=== PATIENT | male | born 1935 | race American Indian/Alaskan Native ===

== ENCOUNTER 2021-12-25 06:43 | Emergency (ER) | payer MEDICARE ==
[2021-12-25] MEDS ORDERED: LET TOPICAL (LIDOCAINE/EPINEPHRINE/TETRACAINE) 3 ML TP ONE (07:24)
[2021-12-25] MEDS ORDERED: TETANUS,DIPH,PERTUSS(ACELL) VACCINE 0.5 ML SYRINGE IM ONE (07:24)
--- NOTE | 2021-12-25 07:26 | Emergency Department Report ---
<BJORN HOLLINS - Last Filed: 12/25/21 10:12> ED Fall HPI - General Chief Complaint: Fall Stated Complaint: FALL/HEAD INJURY Time Seen by Provider: 12/25/21 07:19 - Related Data Allergies Allergy/AdvReac Type Severity Reaction Status Date / Time No Known Allergies Allergy Unverified 09/14/15 09:44 - Laceration /Wound Repair Head Anesthesia: Lidocaine w/ Epi (3 mL topical LET) Number of Sutures: 9 ([place]) ED Disposition Clinical Impression: Fall Qualifiers: Encounter type: initial encounter Qualified Code(s): W19.XXXA - Unspecified fall, initial encounter Occipital scalp laceration Qualifiers: Encounter type: initial encounter Qualified Code(s): S01.01XA - Laceration without foreign body of scalp, initial encounter Posttraumatic headache Qualifiers: Headache chronicity pattern: acute headache Intractability: not intractable Qualified Code(s): G44.319 - Acute post-traumatic headache, not intractable Acute cervical myofascial strain Qualifiers: Encounter type: initial encounter Qualified Code(s): S16.1XXA - Strain of muscle, fascia and tendon at neck level, initial encounter Disposition: HOME / SELF CARE / HOMELESS Condition: Stable Instructions: How to Use Cold Therapy, [id number], Laceration Care, Adult, Cervical Sprain, Post-Concussion Syndrome Additional Instructions: Keep the wound clean. Apply ice for pain. Have the nohelia removed in 10 days. Follow-up with your family doctor for recheck and further management. Consider blocking off the stairs as a safety mechanism. Referrals: PRIMARY CARE, [Referring] - 3-5 Days KALYAN STOKES MD [Staff Physician] - 3-5 Days <REBECCA COBIAN - Last Filed: 12/25/21 11:47> ED Fall HPI - General Source: patient Mode of arrival: Ambulatory - History of Present Illness Initial Comments: Patient presents with injuries from a fall. This was unwitnessed. Patient was getting up to go to the restroom. He apparently fell down a flight of stairs. Family state that this was 13 in number. Again, this was not witnessed. We do not know if he tumbled or bounced or slid. Patient states that he just fell down the stairs. He denies LOC. Family states that he was knocked unconscious. He did sustain a laceration to the occiput. He is complaining of a frontal headache. He states that his neck was hurting but it is not now. His chest was hurting but it is not now. He states his head still hurts. Family state that he does have dementia. They have not been able to rely on his story. This fall was unwitnessed. They are uncertain about his last tetanus booster. They believe it has been longer than 10 years. He is not anticoagulated. ED Review of Systems ROS: Stated complaint: FALL/HEAD INJURY Other details as noted in HPI Comment: All other systems reviewed and negative (He does have dementia so this is somewhat circumspect) Constitutional: denies: fever Eyes: denies: vision change ENT: denies: throat pain Respiratory: denies: cough Cardiovascular: denies: chest pain Endocrine: denies: unexplained weight loss Gastrointestinal: denies: abdominal pain, nausea, vomiting Genitourinary: denies: dysuria Musculoskeletal: as per HPI Skin: denies: rash Neurological: as per HPI Hematological/Lymphatic: denies: easy bruising ED Past Medical Hx - Past Medical History Previous Medical History?: Yes Hx Dementia: Yes Additional medical history: prostate ca - Surgical History Past Surgical History?: Yes Additional Surgical History: prostate - Social History Smoking Status: Never Smoker Substance Use Type: None ED Physical Exam - General Limitations: Altered Mental Status (Chronic dementia), Other (Pulse ox noted and normal) General appearance: alert, in no apparent distress, other (Frail and debilitated) - Head Head exam: Present: normocephalic, other (5 cm horizontal occipital laceration) - Eye Eye exam: Present: normal appearance, PERRL, EOMI. Absent: scleral icterus - ENT ENT exam: Present: normal orophraynx, normal external ear exam - Neck Neck exam: Present: normal inspection, other (There is no midline tenderness or step-off noted.). Absent: tenderness, meningismus - Respiratory Respiratory exam: Present: normal lung sounds bilaterally. Absent: respiratory distress - Cardiovascular Cardiovascular Exam: Present: regular rate, normal rhythm - GI/Abdominal GI/Abdominal exam: Present: soft. Absent: distended, tenderness - Extremities Exam Extremities exam: Present: normal capillary refill, other (No tenderness to palpation x4 extremities). Absent: calf tenderness - Back Exam Back exam: Absent: CVA tenderness (R), CVA tenderness (L), paraspinal tenderness, vertebral tenderness - Neurological Exam Neurological exam: Present: alert, altered (Chronically at baseline per family), CN II-XII intact, reflexes normal. Absent: motor sensory deficit - Psychiatric Psychiatric exam: Present: normal affect, normal mood - Skin Skin exam: Present: warm, dry ED Course Vital Signs 12/25/21 12/25/21 07:06 10:30 Temperature 98.0 F Pulse Rate 85 96 H Respiratory 18 16 Rate Blood Pressure 168/84 123/77 [Left] O2 Sat by Pulse 100 100 Oximetry - Reevaluation(s) Reevaluation #1: 12/25/21 07:26 Imaging ordered. 12/25/21 07:39 Old records noted. Reevaluation #2: 12/25/21 11:46 Imaging was noted. Wound was repaired by the [facility]. Patient was discharged. - Laceration /Wound Repair Head Wound Location: head Wound Length (cm): 6 Wound's Depth, Shape: superficial Wound Explored: clean Irrigated w/ Saline (ccs): 500 Betadine Prep?: Yes Anesthesia: 1% Lidocaine Wound Debrided: None Layer Closure?: No Sterile Dressing Applied?: Yes Progress: Tetanus booster updated. ED Medical Decision Making - Radiology Data Radiology results: report reviewed - Medical Decision Making Patient presents with injuries from a fall. He reportedly fell down multiple steps. There is no evidence of thoracoabdominal trauma. He had no neurologic deficit. He was ambulatory. He did complain of a headache and neck pain. CT imaging was negative for acute injury. There is no epidural or subdural hematoma. He did not have intraparenchymal contusion. There is no spinal fracture. Again, he did not have neurologic symptom or deficit suggestive of cord injury. Scalp laceration was repaired and the patient was discharged. Critical Care Time: No Critical care attestation.: If time is entered above; I have spent that time in minutes in the direct care of this critically ill patient, excluding procedure time. ED Disposition Is pt being admited?: No
--- NOTE | 2021-12-25 08:21 | XRay Report ---
CHEST 2 VIEWS INDICATION / CLINICAL INFORMATION: trauma,fall. COMPARISON: None available. FINDINGS: SUPPORT DEVICES: None. HEART / MEDIASTINUM: No significant abnormality. LUNGS / PLEURA: No significant pulmonary or pleural abnormality. No pneumothorax. ADDITIONAL FINDINGS: No significant additional findings. IMPRESSION: 1. No acute findings. Signer Name: Vahid Maher MD Signed: 12/25/2021 8:17 AM Workstation Name: [id number]
--- NOTE | 2021-12-25 08:22 | XRay Report ---
PELVIS 1 VIEW(S) INDICATION / CLINICAL INFORMATION: trauma,fall COMPARISON: None available. FINDINGS: BONES / JOINT(S): No acute fracture or subluxation. Moderate osteoarthrosis bilateral hip joints. SOFT TISSUES: Numerous surgical clips project over the pubic symphysis. Vascular calcifications. ADDITIONAL FINDINGS: None. Signer Name: Vahid Maher MD Signed: 12/25/2021 8:18 AM Workstation Name: [id number]
--- NOTE | 2021-12-25 08:30 | Cat Scan Report ---
CT HEAD WITHOUT CONTRAST INDICATION / CLINICAL INFORMATION: head injury on thinners. TECHNIQUE: All CT scans at this location are performed using CT dose reduction for ALARA by means of automated exposure control. COMPARISON: None available. FINDINGS: HEMORRHAGE: None. ACUTE INFARCTION: No Significant Abnormality MASS/MASS EFFECT: No Significant Abnormality CEREBRAL PARENCHYMA: No acute focal attenuation abnormality. Mild small vessel ischemic changes. Mode rate generalized cerebral atrophy. VENTRICULAR SYSTEM: Mildly enlarged likely related to central atrophy. ORBITS: Normal as visualized. SKULL: No significant abnormality. PARANASAL SINUSES / MASTOID AIR CELLS: Normal as visualized. ADDITIONAL FINDINGS: Mild soft tissue swelling posterior scalp. IMPRESSION: 1. No acute intracranial injury. 2. Senescent changes as above. 3. Mild soft tissue swelling posterior scalp. Signer Name: Vahid Maher MD Signed: 12/25/2021 8:26 AM Workstation Name: [id number]
--- NOTE | 2021-12-25 08:34 | Cat Scan Report ---
CT CERVICAL SPINE WITHOUT CONTRAST INDICATION / CLINICAL INFORMATION: trauma. TECHNIQUE: Axial CT images of the spine were obtained. Sagittal and coronal reformatted images were p roduced. All CT scans at this location are performed using CT dose reduction for ALARA by means of au tomated exposure control. COMPARISON: None available. FINDINGS: Acute Fracture(s) or Subluxation: None. Spinal Degenerative Changes: Severe multilevel degenerative changes Paraspinal soft tissues: No soft tissue swelling or other acute abnormalities. 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 IMPRESSION: 1. No acute traumatic injury. 2. Severe multilevel degenerative changes. Signer Name: Vahid Maher MD Signed: 12/25/2021 8:29 AM Workstation Name: [id number]
[2021-12-25 10:32] VITALS: BP 123/77
== END 2021-12-25 10:32 | disposition home or self-care (01) ==
LOC: ED 06:43
DX: S16.1XXA Strain of muscle, fascia and tendon at neck level, initial encounter (principal); S01.01XA Laceration without foreign body of scalp, initial encounter; G44.319 Acute post-traumatic headache, not intractable; G43.909 Migraine, unspecified, not intractable, without status migrainosus; F03.90 Unspecified dementia, unspecified severity, without behavioral disturbance, psychotic disturbance, mood disturbance, and anxiety; W10.8XXA Fall (on) (from) other stairs and steps, initial encounter; Y93.89 Activity, other specified; Y92.89 Other specified places as the place of occurrence of the external cause; Y99.8 Other external cause status
CPT/HCPCS: 70450; 71046; 72125; 72170; 90471; 90715; 99284

== ENCOUNTER 2021-12-27 12:07 | Emergency (ER) | payer MEDICARE ==
[2021-12-27 12:32] VITALS: BP 141/62
--- NOTE | 2021-12-27 13:04 | Emergency Department Report ---
ED Medical Clearance HPI - General Chief complaint: Medical Clearance Stated complaint: PULLED NOHELIA OUT Time Seen by Provider: 12/27/21 12:36 Source: family Mode of arrival: Ambulatory - History of Present Illness Initial comments: This is a pleasant 86-year-old male who presents the emergency department with his daughter with chief complaint that he pulled nohelia out of the back of his head. Patient was seen in the ER recently due to a fall and had a laceration repaired with nohelia on the occiput of his head. Daughter reports that shortly after the hospital he pulled the nohelia out. She just want the wound to be checked. States the patient has otherwise been acting normally at his baseline. Allergies/Adverse reactions: Allergies Allergy/AdvReac Type Severity Reaction Status Date / Time No Known Allergies Allergy Unverified 09/14/15 09:44 ED Review of Systems ROS: Stated complaint: PULLED NOHELIA OUT Other details as noted in HPI Constitutional: denies: chills, fever Eyes: denies: eye pain, eye discharge, vision change ENT: denies: ear pain, throat pain Respiratory: denies: cough, shortness of breath, wheezing Cardiovascular: denies: chest pain, palpitations Endocrine: no symptoms reported Gastrointestinal: denies: abdominal pain, nausea, diarrhea Genitourinary: denies: urgency, dysuria Musculoskeletal: denies: back pain, joint swelling, arthralgia Skin: denies: rash, lesions Neurological: denies: headache, weakness, paresthesias Psychiatric: denies: anxiety, depression Hematological/Lymphatic: denies: easy bleeding, easy bruising ED Past Medical Hx - Past Medical History Hx Dementia: Yes Additional medical history: prostate ca - Surgical History Additional Surgical History: prostate - Social History Smoking Status: Never Smoker Substance Use Type: None ED Physical Exam - General Limitations: Altered Mental Status General appearance: alert, in no apparent distress - Head Head exam: Present: atraumatic, normocephalic - Expanded Head Exam Expanded Head exam: Present: other (There is a 3 cm laceration to the occiput with no erythema, edema or ecchymosis. No purulent drainage). Absent: racoon eyes, louise's sign - Eye Eye exam: Present: normal appearance - ENT ENT exam: Present: normal exam, normal orophraynx, mucous membranes moist - Neck Neck exam: Present: normal inspection - Respiratory Respiratory exam: Present: normal lung sounds bilaterally. Absent: respiratory distress - Cardiovascular Cardiovascular Exam: Present: regular rate, normal rhythm. Absent: systolic murmur, diastolic murmur, rubs, gallop - GI/Abdominal GI/Abdominal exam: Present: soft, normal bowel sounds - Rectal Rectal exam: Present: deferred - Extremities Exam Extremities exam: Present: normal inspection - Back Exam Back exam: Present: normal inspection - Neurological Exam Neurological exam: Present: alert. Absent: oriented X3 (At his baseline per family) - Psychiatric Psychiatric exam: Present: normal affect, normal mood - Skin Skin exam: Present: warm, dry, intact, normal color. Absent: rash ED Course Vital Signs 12/27/21 12:31 Temperature 97.7 F Pulse Rate 84 Respiratory 18 Rate Blood Pressure 141/62 O2 Sat by Pulse 100 Oximetry - Laceration /Wound Repair Head Wound Location: head Wound Length (cm): 3 Wound Explored: clean Betadine Prep?: Yes Wound Repaired With: [facility] ED Disposition Clinical Impression: Occipital scalp laceration Qualifiers: Encounter type: subsequent encounter Qualified Code(s): S01.01XD - Laceration without foreign body of scalp, subsequent encounter Disposition: 01 HOME / SELF CARE / HOMELESS Is pt being admited?: No Condition: Stable Instructions: Laceration Care, Adult Time of Disposition: 13:03
== END 2021-12-27 13:22 | disposition home or self-care (01) ==
LOC: ED 12:07
DX: S01.01XD Laceration without foreign body of scalp, subsequent encounter (principal); F03.90 Unspecified dementia, unspecified severity, without behavioral disturbance, psychotic disturbance, mood disturbance, and anxiety; X58.XXXD Exposure to other specified factors, subsequent encounter
CPT/HCPCS: 99282